=== PATIENT | female | born 1970 | race Caucasian/White ===

== ENCOUNTER 2024-11-13 10:14 | Observation (INO) | payer MEDICAID, SELFPAY ==
[2024-11-13] VITALS (7 sets, daily range): BP systolic 99–124; BP diastolic 73–94; PULSE 56–70; RESP 16–18; TEMP 36.7–37.2; O2SAT 96–99; BMI 19.2
--- NOTE | 2024-11-13 10:29 | EX.ED.SAOD ---
HPI History of Present Illness Chief Complaint: ETOH Intox Informant: patient and spouse/S.O. Onset/Context/Timing Onset: Days Context: Gradual Onset Timing: Continuous Current Severity: Mild Maximum Severity: Mild Narrative Narrative: 54-year-old female history of prior alcohol abuse. And chronic pain management. Send she been sober from alcohol for 5 years. Recently began drinking again. Drinks about 1/5 of hard liquor a day. She wants treatment. Denies any recent illness. Prior similar symptoms: Yes Recent Illness/Hospitalization: No PFSH PFSH Allergy/AdvReac Type Severity Reaction Status Date / Time metoclopramide HCl (From AdvReac Other Verified 11/13/24 10:15 Reglan) Social History Smoking Status: Current every day smoker tobacco type: cigarettes ROS ROS ED ROS Narrative Denies recent illness. Constitutional Constitutional ED: Denies chills or fever(s) Eyes Eyes: Denies blurry vision ENT ENT ED: Denies ear pain Cardiovascular Cardiovascular: Denies chest pain Respiratory/Chest Respiratory/Chest: Denies cough or dyspnea Gastrointestinal Gastrointestinal: Denies abdominal pain Genitourinary Genitourinary ED: Denies dysuria Musculoskeletal Musculoskeletal: Denies arthralgias Integumentary Denies abscess Neurologic Neurologic: Denies headache(s) Psychiatric Psychiatric: Denies anxiety Endocrine Endocrinology: Denies cold intolerance Hematologic/Lymphatic Hematologic/Lymphatic: Denies easy bleeding Allergic/Immunologic Allergic/Immunologic ED: Denies mouth swelling EXAM Physical Exam Narrative Exam Narrative: Well-appearing 54-year-old female. Vital signs are stable afebrile. No distress. Significant other at bedside. H EENT exam pupils round reactive light. Moist mucous membranes. Neck nontender no lymphadenopathy. Lungs clear to auscultation bilaterally. Heart regular rhythm rate about 70 no murmur. Abdomen is soft, nondistended normal bowel sounds without peritoneal signs. Nondistended. Moving all 4 extremities. Nontender no edema. Normal strength. Back nontender. Neurologically she is awake alert. Answering questions following commands. No focal motor deficits. Benign exam. Const Vital Signs: 11/13/24 10:15 11/13/24 11:05 Temperature 98.9 F 98.9 F Temperature Source Oral Pulse Rate 67 67 Respiratory Rate 18 18 Blood Pressure 124/94 H 124/94 H Blood Pressure Mean 104 104 Pulse Ox 99 99 Oxygen Delivery Method Room Air Positive well nourished and well developed; Negative for obese, cachectic, contractures or unkempt General Appearance ED: well developed and NAD; Negative for unkempt, cachectic, contractures or pallor Nutritional Appearance: Negative for cachectic or obese HEENT Reports moist mucous membranes atraumatic Eyes PERRL and EOMs intact bilaterally Neck no lymphadenopathy, supple and no JVD Lymph Lymphatic: no lymphadenopathy noted Chest Wall inspection of chest normal and palpation of chest normal Resp normal respiratory effort and clear to auscultation bilaterally Cardio regular rate, regular rhythm, S1 normal heart sound, S2 normal heart sound and no murmurs GI soft to palpation, non-tender, non-distended and no masses Palpation: Negative for tender or guarding Back/Spine no CVA tenderness Extremity General Extremety ED: Negative for edema or tenderness General Extremity: Negative for edema Neuro oriented x3 and CN's II-XII intact bilaterally Sensorium / Orientation: alert, oriented to person, oriented to place and oriented to time; Negative for confused, lethargic or stuporous Speech: speech normal Motor Exam: strength 5/5 throughout Psych mental status grossly normal and thought process normal Appearance: Negative for unkempt Attitude: No belligerent Mood & Affect: Negative for depressed, anxious or tearful Skin General Skin Exam: Negative for pallor Lesions: no lesions Rashes: no rashes MDM MDM MDM Narrative Medical decision making narrative: 54-year-old female history of alcohol abuse. Had 5 years sober. Recently started drinking again. Requesting detox. Exam benign. Screening labs for detox I will speak to the hospitalist about admission. History & Record Review Discussion w/independent historian: Family Additional record(s) reviewed:: Prior inpatient record, Prior outpatient record, Prior ED visit and Prior labs Lab Data Attestation: I reviewed the patient's lab results. Lab results narrative: CBC normal. White count of 6. H&H of 14 and 42. Platelets 242. Chemistries show sodium 134. Gap 10. Normal BUN of 10 and creatinine 0.81. Glucose 101. Liver enzymes unremarkable other than AST of 144. ALT 49. Alcohol level is negative. Labs: Laboratory Results - last 24 hr 11/13/24 10:35 WBC 6.4 RBC 4.39 Hgb 14.2 Hct 42.6 MCV 97.0 MCH 32.3 H MCHC 33.3 RDW Std Deviation 57.7 H RDW Coeff of Ruth 16.5 H Plt Count 242 MPV 8.5 Immature Gran % (Auto) 0.300 Neut % (Auto) 77.0 H Lymph % (Auto) 14.7 L [place] % (Auto) 7.0 Eos % (Auto) 0.2 Baso % (Auto) 0.8 Absolute Neuts (auto) 4.9 Absolute Lymphs (auto) 0.94 Nucleated RBC % 0 Sodium 134 Potassium 3.9 Chloride 97 L Carbon Dioxide 27.3 Anion Gap 10 BUN 10 Creatinine 0.81 Estim Creat Clear Calc 74.77 Est GFR (MDRD) Non-Af 87 BUN/Creatinine Ratio 12.3 Glucose 101 H Calcium 8.6 Total Bilirubin 0.71 AST 144 H ALT 49 H Alkaline Phosphatase 75 Total Protein 7.0 Albumin 4.0 Globulin 2.9 Albumin/Globulin Ratio 1.4 Ethyl Alcohol < 10.1 Discharge Plan Dx/Rx/DC Orders Clinical Impression: Alcohol abuse, Admitted to alcohol detoxification center, Chronic pain Disposition Disposition: Acute Care Hospital [facility]
[2024-11-13 10:41] LABS: Absolute Lymphocyte Count 0.94 X10^3/uL (0.83-4.51); Absolute Neutrophil Count 4.9 X10^3/uL (2.0-7.7); Basophil# 0.05 X10^3/uL; Basophil% 0.8 % (0-1); Eosinophil# 0.01 X10^3/uL; Eosinophils% 0.2 % (0-5); Hematocrit 42.6 % (37-47); Hemoglobin 14.2 g/dL (12.0-15.0); Lymphocyte # 0.94 X10^3/ul (0.83-4.51); Lymphocyte % 14.7 % (19-41); Mean Corp Hgb Conc 33.3 g/dL (32-36); Mean Corpuscular Hgb 32.3 pg (27.0-32.0); Mean Platelet Vol. 8.5 fl (6.2-12.0); Monocyte# 0.45 X10^3/uL; NRBC Flagged by Analyzer 0 % (0-5); Neutrophil # 4.92 X10^3/uL (2.7-7.7); Platelet Count 242 K/mm3 (150-450); RBC Distribution Width CV 16.5 % (11.6-14.6); RBC Distribution Width SD 57.7 fl (35.1-43.9); Red Blood Count 4.39 M/mm3 (4.2-5.4); White Blood Count 6.4 K/mm3 (4.4-11.0)
[2024-11-13 11:11] LABS: Alcohol, Blood (Medical)-Serum < 10.1 mg/dL (<=10.0)
[2024-11-13 11:13] LABS: ALB/GLOB Ratio 1.4 RATIO (0.9-2.4); AST(SGOT) 144 U/L (<=31); Alanine Aminotransfer ALT/SGPT 49 U/L (<=34); Alkaline Phosphatase 75 U/L (35-104); Anion Gap 10 (5-15); BUN 10 mg/dL (4-19); BUN/Creat Ratio 12.3 RATIO (10-20); Calcium,Total 8.6 mg/dL (7.6-11.0); Carbon Dioxide 27.3 mmol/L (21.0-32.0); Chloride 97 mmol/L (98-108); Creatinine, Serum 0.81 mg/dL (0.70-1.20); EST Glomerular Filtration Rate 87 (>60); Estimated Creatinine Clearance 74.77 ml/min (50-250); Globulin 2.9 g/dL (2.2-4.2); Glucose 101 mg/dL (70-99); Potassium 3.9 mmol/L (3.3-5.1); Sodium Level 134 mmol/L (133-145); Total Bilirubin 0.71 mg/dL (0.00-1.30)
[2024-11-13 11:43] LABS: Amphetamine Urine NEGATIVE (<1000 ng/mL); Barbiturate Urine NEGATIVE (< 200 ng/mL); Benzodiazepine Urine NEGATIVE (< 200 ng/mL); Buprenorphine Urine NEGATIVE (< 200 ng/mL); Cocaine Urine NEGATIVE (< 300 ng/mL); Fentanyl, Urine NEGATIVE; Methadone Urine NEGATIVE (< 300 ng/mL); Opiates Urine NEGATIVE (< 300 ng/mL); Oxycodone, Urine PRESUMPTIVE POSITIVE (< 100 ng/mL); PCP Urine NEGATIVE (< 25 ng/mL); THC Urine NEGATIVE (< 50 ng/mL)
--- NOTE | 2024-11-13 11:59 | PCM.HP.STD ---
[facility] - General General Date of Service: 11/13/24 Chief Complaint: requesting treatment for alcohol withdrawal. HPI Narrative RASHAD ALMODOVAR, is a 54 F who presents presenting show for alcohol drawl. This is a 54-year-old female with history of alcohol abuse who had been sober for about 5 years who began drinking heavily about a month ago. Patient is drinking roughly 1/5 of liquor per day. Last drink was yesterday and patient stated that she felt terrible last night with just shakiness and unsteadiness. She presented to the emergency room where her alcohol level was less than 10. She is requesting treatment for alcohol withdrawal. She has previously been in residential programs. [facility] Medical History (Updated 11/13/24 @ 12:[address] Brice Kellogg DO) Constipation by delayed colonic transit Hypothyroidism Chronic pain Allergy/AdvReac Type Severity Reaction Status Date / Time metoclopramide HCl (From AdvReac Other Verified 11/13/24 10:15 Reglan) Family History (Updated 11/13/24 @ 12:[address] Brice Kellogg DO) Father Alcoholism Mother Alcoholism Surgical History (Updated 11/13/24 @ 12:[address] Brice Kellogg DO) H/O gastric bypass H/O colectomy Social History (Updated 11/13/24 @ 12:[address] Brice Kellogg DO) Smoking Status: Current every day smoker tobacco type: cigarettes substance use type: does not use ROS ROS Narrative Has soft stool. Does not further constipation since her colectomy. Vital Signs Vital Signs Vital Signs: 11/13/24 10:15 11/13/24 11:05 11/13/24 11:14 Temperature 37.2 C 37.2 C Temperature Source Oral Pulse Rate 67 67 70 Respiratory Rate 18 18 18 Blood Pressure 124/94 H 124/94 H 116/81 H Blood Pressure Mean 104 104 92 Pulse Ox 99 99 98 Oxygen Delivery Method Room Air Weight Weight: 58.967 kg Body Mass Index (BMI) 19.2 Results Lab / Micro Data Attestation: I reviewed the patient's lab results. 11/13/24 10:35 11/13/24 10:35 Labs: Laboratory Results - last 24 hr 11/13/24 10:35: WBC 6.4, RBC 4.39, Hgb 14.2, Hct 42.6, MCV 97.0, MCH 32.3 H, MCHC 33.3, RDW Std Deviation 57.7 H, RDW Coeff of Ruth 16.5 H, Plt Count 242, MPV 8.5, Immature Gran % (Auto) 0.300, Neut % (Auto) 77.0 H, Lymph % (Auto) 14.7 L, [place] % (Auto) 7.0, Eos % (Auto) 0.2, Baso % (Auto) 0.8, Absolute Neuts (auto) 4.9, Absolute Lymphs (auto) 0.94, Nucleated RBC % 0, Sodium 134, Potassium 3.9, Chloride 97 L, Carbon Dioxide 27.3, Anion Gap 10, BUN 10, Creatinine 0.81, Estim Creat Clear Calc 74.77, Est GFR (MDRD) Non-Af 87, BUN/Creatinine Ratio 12.3, Glucose 101 H, Calcium 8.6, Total Bilirubin 0.71, AST 144 H, ALT 49 H, Alkaline Phosphatase 75, Total Protein 7.0, Albumin 4.0, Globulin 2.9, Albumin/Globulin Ratio 1.4, Urine Opiates Screen NEGATIVE, U Buprenorphine Qual NEGATIVE, Ur Oxycodone Screen PRESUMPTIVE POSITIVE, Urine Methadone Screen NEGATIVE, Urine Fentanyl Screen NEGATIVE, Ur Barbiturates Screen NEGATIVE, Ur Phencyclidine Scrn NEGATIVE, Ur Amphetamines Screen NEGATIVE, U Benzodiazepines Scrn NEGATIVE, Urine Cocaine Screen NEGATIVE, U Cannabinoids Screen NEGATIVE, Ethyl Alcohol < 10.1 Assessment & Plan Assessment/Plan (1) Alcohol withdrawal: PLAN: Last drink was 11/12 and patient has been having some unsteadiness, tremulousness. She is not in any delirium tremens at this time but has been drinking 1/5 of liquor daily for the past month. Patient will be admitted to the ramp program with addiction medicine to see, start her on phenobarbital taper, thiamine and folate, additional agent to help with somatic complaints with her withdrawal. PLAN: Plan Chronic condition Chronic pain: Continue with Percocet per her pain management protocol. Patient states that she is supposed to have a celiac nerve block but awaiting on insurance authorization for that to help. Hypothyroidism: Continue levothyroxine VTE prophylaxis: Low risk as patient will be ambulatory. CODE STATUS: Addressed with patient. Patient is full code. Charges/Coding Visit Charges Inpatient E&M: 34801 Init Hosp L2
[2024-11-13] MEDS: Phenobarbital 32.4 MG Tablet 97.2 MG PO ×3 (13:09→21:00)
[2024-11-13] MEDS: Ondansetron 8 MG Tablet PO (13:13)
[2024-11-13] MEDS: oxyCODONE 5 MG Tablet 7.5 MG PO ×2 (15:35→23:07)
--- NOTE | 2024-11-13 23:15 | NURSING ---
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 Pharmacy has been notified as well as the supervisor finishing. They have been unable to obtain access for this nurse. Other nurses have been helping pull medications.
[2024-11-14 01:03] VITALS: BP 93/69; PULSE 60; RESP 16; TEMP 36.7; O2SAT 96
[2024-11-14] MEDS: Phenobarbital 32.4 MG Tablet 97.2 MG PO ×3 (01:11→09:11)
[2024-11-14 04:00] VITALS: BP 100/78; PULSE 86; RESP 16; TEMP 36.9; O2SAT 97
[2024-11-14] MEDS: oxyCODONE 5 MG Tablet 7.5 MG PO (06:48)
[2024-11-14 08:41] VITALS: BP 96/60; PULSE 63; RESP 16; TEMP 36.8; O2SAT 96
--- NOTE | 2024-11-14 08:52 | PN.HOSP_ITS ---
Subjective Subjective Doing well, no issues overnight. CIWA score of 0 this morning, she feels better than she did yesterday. Yesterday was about 48 hours after her last alcoholic beverage which was on Thursday Objective Data Objective Data Vital Signs: Vital Signs Temp Pulse Resp BP Pulse Ox O2 Del Method 98.4 F 86 16 100/78 97 Room Air 11/14/24 04:00 11/14/24 04:00 11/14/24 04:00 11/14/24 04:00 11/14/24 04:00 11/14/24 04:29 Oxygen Delivery Method Room Air Weight: 130 lb Body Mass Index (BMI) 19.2 Intake & Output: Intake and Output for Last 24 Hours 11/13/24 11/14/24 11/15/24 03:59 03:59 03:59 Intake Total 250 / 250 Balance 250 / 250 Lab / Micro Data 11/13/24 10:35 11/13/24 10:35 Labs: Laboratory Results - last 24 hr 11/13/24 10:35: WBC 6.4, RBC 4.39, Hgb 14.2, Hct 42.6, MCV 97.0, MCH 32.3 H, MCHC 33.3, RDW Std Deviation 57.7 H, RDW Coeff of Ruth 16.5 H, Plt Count 242, MPV 8.5, Immature Gran % (Auto) 0.300, Neut % (Auto) 77.0 H, Lymph % (Auto) 14.7 L, [place] % (Auto) 7.0, Eos % (Auto) 0.2, Baso % (Auto) 0.8, Absolute Neuts (auto) 4.9, Absolute Lymphs (auto) 0.94, Nucleated RBC % 0, Sodium 134, Potassium 3.9, Chloride 97 L, Carbon Dioxide 27.3, Anion Gap 10, BUN 10, Creatinine 0.81, Estim Creat Clear Calc 74.77, Est GFR (MDRD) Non-Af 87, BUN/Creatinine Ratio 12.3, G lucose 101 H, Calcium 8.6, Total Bilirubin 0.71, AST 144 H, ALT 49 H, Alkaline Phosphatase 75, Total Protein 7.0, Albumin 4.0, Globulin 2.9, Albumin/Globulin Ratio 1.4, Urine Opiates Screen NEGATIVE, U Buprenorphine Qual NEGATIVE, Ur Oxycodone Screen PRESUMPTIVE POSITIVE, Urine Methadone Screen NEGATIVE, Urine Fentanyl Screen NEGATIVE, Ur Barbiturates Screen NEGATIVE, Ur Phencyclidine Scrn NEGATIVE, Ur Amphetamines Screen NEGATIVE, U Benzodiazepines Scrn NEGATIVE, Urine Cocaine Screen NEGATIVE, U Cannabinoids Screen NEGATIVE, Ethyl Alcohol < 10.1 Physical Exam Narrative General: Alert, Oriented x3, Cooperative, No apparent distress HEENT: Atraumatic, PERRLA, EOMI, Normocephalic Oral: Moist Mucosa Neck: Supple, No JVD Lungs: Clear to auscultation, Normal air movement, No rhonchi, No wheeze, No rales Cardiovascular: Regular rate, Regular Rhythm, Normal S1, Normal S2, No murmurs Abdomen: Soft, Non Tender, Non-Distended, No Hepato-splenomegaly Extremities: No edema, Capillary Refill Less than 3 Seconds Skin: No rashes, No breakdown Musculoskeletal: No Tenderness to Palpation of Joints or Extremities Neurological: No focal neurological deficits, Motor Exam 5/5 strength throughout, Sensory exam intact to light touch and pain Psych/Mental Status: Normal Affect, Appropriate Assessment & Plan Assessment/Plan (1) Alcohol withdrawal: PLAN: Plan 1. Acute alcohol withdrawal ? Her last drink was on Thursday ? CIWA scores of 0 today ? Continue with the alcohol withdrawal protocol ? Will have her meet with 180 today to establish a discharge plan given the timeline she could potentially discharge today or tomorrow depending on what she would like to do ? She had gone through residential treatment 20 to 30 years ago she said for several months and had been fine until she started drinking again over the last month, she does not think that she necessarily needs to go through a residential treatment plan but she is open to what ever 180 suggests 2. Chronic pain ? She follows with pain management ? Continue with her home medications 3. Hypothyroidism ? Stable ? Continue Synthroid DVT: Ambulation Charges/Coding Visit Charges Inpatient E&M: 76979 Subs Hosp L2
[2024-11-14] MEDS: Thiamine Hydrochloride 100 MG Tablet PO (09:12)
[2024-11-14] MEDS: Folic Acid 1 MG Tablet PO (09:12)
--- NOTE | 2024-11-14 12:19 | ADDICTION ---
This scenario writer met with PT to conduct ASAM, MSE, AUDIT, DUDIT assessments and to plan for d/c. PT A+Ox4 and participated actively. All assessments completed. PT plans to f/u with [facility] for inpatient treatment services on Thursday. Pt's friend will transport to treatment.
--- NOTE | 2024-11-14 12:26 | DCINST_ITS ---
Discharge Instructions Diet Discharge Diet: No restrictions DC O2, CPAP, BIPAP needs Home O2 Discharge instructions: No Dressing / Incision Discharge Activity: Return to Normal Activity Dressing / Incision Call your doctor if you observe: Fever of 101 or Higher, Shortness of breath, Dizziness, Fainting spells, Swelling in the ankles, Chest pain and Increased palpitations (irregular heartbeat) Follow Up Care Test Results: Test results from this visit will be discussed in further detail at your follow- up appointment, if applicable. Discharge Plan Admission Admit Date/Time: 11/13/24 11:57 Attending Provider: Diego Suh Primary Care Provider: Vanessa Carmen Consulting Providers: Brice Kellogg Discharge Orders/Prescriptions Prescriptions: Continued ascorbic acid (vitamin C) 1,000 mg tablet 1,000 mg PO DAILY cholecalciferol (vitamin D3) 1,250 mcg (50,000 unit) capsule 1,250 mcg PO QWEEK levothyroxine 200 mcg tablet 200 mcg PO DAILY pantoprazole 40 mg tablet,delayed release (DR/EC) 40 mg PO BID sucralfate [Carafate] 100 mg/mL suspension 10 ml PO 4X/DAY Patient Comments: SUPPOSE TO TAKE BUT DOES NOT. oxycodone-acetaminophen 7.5-325 mg tablet 1 tab PO TID Referrals / Follow Up: Vanessa Carmen MD [Primary Care Provider] - Within 1 Week Care Physician,No Primary [Non-Staff] - Disposition Disposition (needs filled in before D/C Order can be placed): Home, Self Care
--- NOTE | 2024-11-14 12:28 | PCM.DC.SUM ---
Providers Date of Admission: 11/13/24 Primary Care Physician: Dr. Vanessa Carmen MD Reason For Visit: ALCHOL WITHDRAWEL Diagnosis Discharge Diagnosis (1) Alcohol withdrawal: Status: Acute Code(s): F10.939 - Alcohol use, unspecified with withdrawal, unspecified Medications at Discharge Home Medications ascorbic acid (vitamin C) 1,000 mg tablet 1,000 mg PO DAILY SUPPLEMENT 11/13/24 cholecalciferol (vitamin D3) 1,250 mcg (50,000 unit) capsule 1,250 mcg PO QWEEK SUPPLEMENT 11/13/24 levothyroxine 200 mcg tablet 200 mcg PO DAILY THYROID 11/13/24 oxycodone-acetaminophen 7.5 mg-325 mg tablet 1 tab PO TID PAIN 11/13/24 pantoprazole 40 mg tablet,delayed release 40 mg PO BID STOMACH ACID 11/13/24 sucralfate 100 mg/mL oral suspension (Carafate) 10 ml PO 4X/DAY ULCERS 11/13/24 Hospital Course Operations None Procedures None Summary of Care Provided Minutes Spent on Discharge: 34 Hospital Course: Per HPI: RASHAD ALMODOVAR, is a 54 F who presents presenting show for alcohol drawl. This is a 54-year-old female with history of alcohol abuse who had been sober for about 5 years who began drinking heavily about a month ago. Patient is drinking roughly 1/5 of liquor per day. Last drink was yesterday and patient stated that she felt terrible last night with just shakiness and unsteadiness. She presented to the emergency room where her alcohol level was less than 10. She is requesting treatment for alcohol withdrawal. She has previously been in residential programs. Hospital Course: 1. Acute alcohol withdrawal requesting detox?54-year-old female presented to the hospital requesting detox from alcohol. She had gone through inpatient rehab 2030 years ago with her drinking problem that started drinking again this last month. She does not want to go to inpatient rehab at this time. Her last drink was Thursday and she had significant withdrawal symptoms she said Thursday night into Thursday however today she feels great. She met with 180 and will plan to follow-up as an outpatient. She did not want to do any inpatient rehab this time around. I discussed with her the plan for discharge and she expressed understanding of the risk and benefits of going home and would like to go home today. 2. Chronic pain, hypothyroidism, GERD are all chronic medical conditions which complicate her care. Her home medications were continued where appropriate Physical Exam Narrative General: Alert, Oriented x3, Cooperative, No apparent distress HEENT: Atraumatic, PERRLA, EOMI, Normocephalic Oral: Moist Mucosa Neck: Supple, No JVD Lungs: Clear to auscultation, Normal air movement, No rhonchi, No wheeze, No rales Cardiovascular: Regular rate, Regular Rhythm, Normal S1, Normal S2, No murmurs Abdomen: Soft, Non Tender, Non-Distended, No Hepato-splenomegaly Extremities: No edema, Capillary Refill Less than 3 Seconds Skin: No rashes, No breakdown Musculoskeletal: No Tenderness to Palpation of Joints or Extremities Neurological: No focal neurological deficits, Motor Exam 5/5 strength throughout, Sensory exam intact to light touch and pain Psych/Mental Status: Normal Affect, Appropriate Weight / BMI Weight Weight: 130 lb Body Mass Index (BMI) 19.2 ABG / Lab / Microbiology Data 11/13/24 10:35 11/13/24 10:35 D/C Instructions Discharge Diet: No restrictions Call your doctor if you observe: Fever of 101 or Higher, Shortness of breath, Dizziness, Fainting spells, Swelling in the ankles, Chest pain and Increased palpitations (irregular heartbeat) DC O2, CPAP, BIPAP Needs Home O2 Discharge instructions: No Meaningful Use Info Meaningful Use Meaningful Use Diagnoses (Choose all that apply): None applicable Ischemic Stroke Statin Dosing Therapy Reference: STATIN DOSE THERAPY REFERENCE: * Patients > 75 years receive moderate or high dose statin therapy. * Patients 75 years or YOUNGER should receive HIGH intensity statin dose unless contraindicated. You will be required to document reason for non-treatment if statin daily dose does not meet guidelines. HIGH DOSE STATIN THERAPY DAILY Atorvastatin > than or = to 40 mg Rosuvastatin > than or = to 20 mg Amlodipine + Atorvastatin > than or = to 2.5/40 mg Ezetimibe + Simvastatin 10/80 mg Simvastatin 80mg Discharge Plan Admission Admit Date/Time: 11/13/24 11:57 Attending Provider: Diego Suh Primary Care Provider: Vanessa Carmen Consulting Providers: Brice Kellogg Discharge Orders/Prescriptions Prescriptions: Continued ascorbic acid (vitamin C) 1,000 mg tablet 1,000 mg PO DAILY cholecalciferol (vitamin D3) 1,250 mcg (50,000 unit) capsule 1,250 mcg PO QWEEK levothyroxine 200 mcg tablet 200 mcg PO DAILY pantoprazole 40 mg tablet,delayed release (DR/EC) 40 mg PO BID sucralfate [Carafate] 100 mg/mL suspension 10 ml PO 4X/DAY Patient Comments: SUPPOSE TO TAKE BUT DOES NOT. oxycodone-acetaminophen 7.5-325 mg tablet 1 tab PO TID Referrals / Follow Up: Vanessa Carmen MD [Primary Care Provider] - Within 1 Week Care Physician,No Primary [Non-Staff] - Disposition Disposition (needs filled in before D/C Order can be placed): Home, Self Care Charges/Coding Visit Charges Inpatient E&M: 36508 Disch Hosp >30min
--- NOTE | 2024-11-14 13:43 | PHA.DC.MR.R ---
Pharmacy [facility] Med Reconciliation Pharmacy Service has performed discharge medication reconciliation for this patient. The patient's discharge medication list was reviewed for discrepancies and discrepancies were resolved. Medications at Discharge Home Medications ascorbic acid (vitamin C) 1,000 mg tablet 1,000 mg PO DAILY SUPPLEMENT 11/13/24 cholecalciferol (vitamin D3) 1,250 mcg (50,000 unit) capsule 1,250 mcg PO QWEEK SUPPLEMENT 11/13/24 levothyroxine 200 mcg tablet 200 mcg PO DAILY THYROID 11/13/24 oxycodone-acetaminophen 7.5 mg-325 mg tablet 1 tab PO TID PAIN 11/13/24 pantoprazole 40 mg tablet,delayed release 40 mg PO BID STOMACH ACID 11/13/24 sucralfate 100 mg/mL oral suspension (Carafate) 10 ml PO 4X/DAY ULCERS 11/13/24
== END 2024-11-14 13:15 | disposition home or self-care (01) | DRG 775 ==
LOC: ED 11:02 → MS3 12:10
PROVIDERS: Emergency Provider Emergency Medicine; PCP Family Medicine; Visit Provider Family Medicine
DX: F10.239 Alcohol dependence with withdrawal, unspecified (principal); E03.9 Hypothyroidism, unspecified; K21.9 Gastro-esophageal reflux disease without esophagitis; G89.29 Other chronic pain; Z79.891 Long term (current) use of opiate analgesic; Z79.890 Hormone replacement therapy; Z79.899 Other long term (current) drug therapy; Y90.0 Blood alcohol level of less than 20 mg/100 ml; F17.210 Nicotine dependence, cigarettes, uncomplicated; Z98.84 Bariatric surgery status
CPT/HCPCS: 80053; 80307; 82077; 85025; 99221; 99284; G0378